=== PATIENT | male | born 1990 | race Caucasian/White ===

== ENCOUNTER 2016-06-01 00:30 | Emergency (ER) | payer OTHER ==
[~2016-06-01] VITALS: Ht 162.6 cm; Wt 83.9 kg
[2016-06-01 00:35] VITALS: Ht 162.6 cm; Wt 83.9 kg
--- NOTE | 2016-06-01 00:59 | EMERGENCY ROOM VISIT NOTE ---
History Report prepared by Lachoibmaricruz: Tonya Anthony Under the Supervision of: Dr. Alcides Henderson D.O. 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 The patient states that earlier tonight he was going to the bathroom to have a bowel movement and noticed he had a large amount of dark blood in his watery diarrhea stool. The patient states that he then tried to go back to sleep but then had another urgent bowl movement. He states that he has a history of Crohn's disease but has not had any issues for the last several years. He states that ileectomy of the small and large bowels in 2008. The patient states that after seeing the blood he felt dizziness and had cold sweats. He states he has no other sick contacts and ate normally today. He states he had some wine last night but that it usually does not cause these symptoms. The patient denies any vomiting, recent travel or recent antibiotic use. 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 A total of ten systems were reviewed and were otherwise negative. Past Medical & Surgical Medical Problems: (1) Acute Pancreatitis (2) Alcohol Abuse-Unspec (3) Asthma (4) Crohns disease (5) Iron Defic Anemia Nos Surgical Problems: (1) History of ileostomy Family History FH: diabetes mellitus FH: heart disease FH: hypertension Social History Smoking Status: Never Smoker Alcohol Use: occasionally Marital Status: single Housing Status: lives with roommate Occupation Status: employed Current/Historical Medications Scheduled Azathioprine (Imuran), 150 MG PO QAM Mesalamine (Lialda), 2.4 TAB PO QAM Multiple Vitamin (Multivitamin), 1 TAB PO QAM Scheduled PRN Loratadine (Claritin), 10 MG PO QAM PRN for QAM Allergies Coded Allergies: Morphine (Unverified Allergy, Unknown, "Opiate Agonist allergy", 06/01/16) Nalbuphine (Unverified Allergy, Unknown, DELIRIUM, 06/01/16) Physical Exam Vital Signs Date Time Temp Pulse Resp B/P Pulse Ox O2 Delivery O2 Flow Rate FiO2 06/01/16 02:06 74 18 121/67 99 Room Air 06/01/16 00:35 36.6 96 20 119/72 99 Room Air Physical Exam GENERAL: Awake, alert, well-appearing, in no distress HENT: Normocephalic, atraumatic. Oropharynx unremarkable. EYES: Normal conjunctiva. Sclera non-icteric. NECK: Supple. No nuchal rigidity. FROM. No JVD. RESPIRATORY: Clear to auscultation. CARDIAC: Regular rate, normal rhythm. Extremities warm and well perfused. Pulses equal. ABDOMEN: Soft, non-distended. No tenderness to palpation. No rebound or guarding. No masses. RECTAL: Deferred. MUSCULOSKELETAL: Chest examination reveals no tenderness. The back is symmetrical on inspection without obvious abnormality. There is no CVA tenderness to palpation. No joint edema. LOWER EXTREMITIES: Calves are equal size bilaterally and non-tender. No edema. No discoloration. NEURO: Normal sensorium. No sensory or motor deficits noted. SKIN: No rash or jaundice noted. Medical Decision & Procedures Laboratory Results 06/01/16 01:10 Red Blood Count 4.54, Mean Corpuscular Volume 87.2, Mean Corpuscular Hemoglobin 30.8, Mean Corpuscular Hemoglobin Concent 35.4, Mean Platelet Volume 11.2, Neutrophils (%) (Auto) 70.7, Lymphocytes (%) (Auto) 19.4, Monocytes (%) (Auto) 7.8, Eosinophils (%) (Auto) 1.7, Basophils (%) (Auto) 0.2, Neutrophils # (Auto) 4.27, Lymphocytes # (Auto) 1.17, Monocytes # (Auto) 0.47, Eosinophils # (Auto) 0.10, Basophils # (Auto) 0.01 06/01/16 01:10 Test 06/01/16 01:10 White Blood Count 6.03 K/uL (4.8-10.8) Red Blood Count 4.54 M/uL (4.7-6.1) Hemoglobin 14.0 g/dL (14.0-18.0) Hematocrit 39.6 % (42-52) Mean Corpuscular Volume 87.2 fL (80-100) Mean Corpuscular Hemoglobin 30.8 pg (25-34) Mean Corpuscular Hemoglobin Concent 35.4 g/dl (32-36) Platelet Count 164 K/uL (130-400) Mean Platelet Volume 11.2 fL (7.4-10.4) Neutrophils (%) (Auto) 70.7 % Lymphocytes (%) (Auto) 19.4 % Monocytes (%) (Auto) 7.8 % Eosinophils (%) (Auto) 1.7 % Basophils (%) (Auto) 0.2 % Neutrophils # (Auto) 4.27 K/uL (1.4-6.5) Lymphocytes # (Auto) 1.17 K/uL (1.2-3.4) Monocytes # (Auto) 0.47 K/uL (0.11-0.59) Eosinophils # (Auto) 0.10 K/uL (0-0.5) Basophils # (Auto) 0.01 K/uL (0-0.2) RDW Standard Deviation 41.8 fL (36.4-46.3) RDW Coefficient of Variation 13.2 % (11.5-14.5) Immature Granulocyte % (Auto) 0.2 % Immature Granulocyte # (Auto) 0.01 K/uL (0.00-0.02) Anion Gap 5.0 mmol/L (3-11) Est Creatinine Clear Calc Drug Dose 117.6 ml/min Estimated GFR () 130.9 Estimated GFR (Non- 112.9 BUN/Creatinine Ratio 17.9 (10-20) Calcium Level 8.5 mg/dl (8.5-10.1) Total Bilirubin 0.2 mg/dl (0.2-1) Aspartate Amino Transf (AST/SGOT) 15 U/L (15-37) Alanine Aminotransferase (ALT/SGPT) 28 U/L (12-78) Alkaline Phosphatase 55 U/L (45-117) Total Protein 6.4 gm/dl (6.4-8.2) Albumin 3.5 gm/dl (3.4-5.0) Globulin 2.9 gm/dl (2.5-4.0) Albumin/Globulin Ratio 1.2 (0.9-2) Chemistry Specimen Hemolysis Laboratory results reviewed by dc ED Course 0041: The patient was evaluated in room B3B. A complete history and physical exam was performed. 0225: I reevaluated the patient and he states he feels much better and is in no distress. I discussed results and discharge instructions: He verbalized understanding and agreement. The patient is ready for discharge. Medical Decision Differential diagnoses include but are not limited to; Crohn's disease, gastritis, gastroenteritis, lower GI bleed, and dehydration. Repeat examination 2:25 AM, patient presents in no distress he's able tolerate liquids without any difficulty. His abdomen is very soft on reexamination. I discussed workup with the patient at bedside and will place him on Bentyl for spasms. I do not suspect a significant Crohn's exacerbation or appendicitis at this time Impression Primary Impression: Crohns disease Additional Impression: Abdominal pain Scribe Attestation The scribe's documentation has been prepared under my direction and personally reviewed by me in its entirety. I confirm that the note above accurately reflects all work, treatment, procedures, and medical decision making performed by me. Departure Information Dispostion Home / Self-Care Prescriptions Dicyclomine Hcl (BENTYL) 10 Mg Cap 1 CAP PO TID for 30 Days, #90 CAP 3 Refills Prov: Alcides Henderson, DO 06/01/16 Referrals [facility] (PCP) Patient Instructions Abdominal Pain, My [facility] Additional Instructions Follow-up with primary care physician this week. Return for any increased pain or fever or anorexia or increased bloody stools. Problem Qualifiers Primary Impression: Crohns disease Gastrointestinal tract location: unspecified location Digestive disease complication type: without complication Qualified Codes: K50.90 - Crohn's disease, unspecified, without complications Additional Impression: Abdominal pain Abdominal location: generalized Qualified Codes: R10.84 - Generalized abdominal pain
[2016-06-01 01:45] LABS: BASO % 0.2 %; BASO ABS # 0.01 K/uL (0-0.2); COMPLETE YES; EOS % 1.7 %; HEMATOCRIT 39.6 % (42-52); IG% 0.2 %; LYMPH % 19.4 %; LYMPH ABS # 1.17 K/uL (1.2-3.4); MEAN CELL VOLUME 87.2 fL (80-100); MEAN CORPUSCULAR HEMOGLOBIN 30.8 pg (25-34); MEAN CORPUSCULAR HGB CONC 35.4 g/dl (32-36); MEAN PLATELET VOLUME 11.2 fL (7.4-10.4); MONO % 7.8 %; NEUT % 70.7 %; PLATELET COUNT 164 K/uL (130-400); RED BLOOD COUNT 4.54 M/uL (4.7-6.1); WHITE BLOOD COUNT 6.03 K/uL (4.8-10.8)
[2016-06-01 02:20] LABS: ALB/GLOB RATIO 1.2 (0.9-2); BUN/CREATININE RATIO 17.9 (10-20); CALCIUM 8.5 mg/dl (8.5-10.1); CREATININE 0.93 mg/dl (0.60-1.40)
[2016-06-01] MEDS ORDERED: DICY10CA55 PO (02:29)
[2016-06-01 02:35] VITALS: BP 121/67; PULSE 74; TEMP 36.6; O2SAT 99
[2016-06-01] MEDS ORDERED: MULTTAB58 PO (14:40)
[2016-06-01] MEDS ORDERED: MESA1.2T PO (14:40)
[2016-06-01] MEDS ORDERED: CLR10 PO (14:40)
[2016-06-01] MEDS ORDERED: AZAT50TA17 PO (20:50)
== END 2016-06-01 02:36 | disposition home or self-care (01) ==
LOC: C.EDB 00:31
DX: K50.90 Crohn's disease, unspecified, without complications (principal); R10.84 Generalized abdominal pain; K85.90 Acute pancreatitis without necrosis or infection, unspecified; F10.10 Alcohol abuse, uncomplicated; D50.9 Iron deficiency anemia, unspecified; Z83.3 Family history of diabetes mellitus; Z82.49 Family history of ischemic heart disease and other diseases of the circulatory system; Z79.899 Other long term (current) drug therapy

== ENCOUNTER 2016-06-01 14:22 | Inpatient (IN) | payer OTHER ==
[~2016-06-01] VITALS: Ht 162.6 cm; Wt 82.2 kg
[~2016-06-01 14:22] MED LIST: DICY10CA55 PO
[2016-06-01] MEDS ORDERED: MESA1.2T PO (14:40)
[2016-06-01] MEDS ORDERED: MULTTAB58 PO (14:40)
[2016-06-01] MEDS ORDERED: CLR10 PO (14:40)
--- NOTE | 2016-06-01 15:29 | EMERGENCY ROOM VISIT NOTE ---
History Report prepared by Thomas: Carroll Costello Under the Supervision of: Dr. Jose Villagran M.D. First contact with patient: 15:18 Chief Complaint: ABDOMINAL PAIN Stated Complaint: ABD. PAIN, CRAMPING BLOOD IN STOOL Nursing Triage Summary: Pt c/o "profuse blood in my stool" seen last night. States he has pictures of it, maroon in color. Prescribed Bentyl. [facility] Doctor didn't agree with prescription and sent him back to be admitted and have colonoscopy. Pt states Hgb was not low yesterday and it's higher today. History of Present Illness The patient is a 25 year old male who presents to the Emergency Room with complaints of rectal bleeding that occurred last night. The patient notes that the stool was maroon colored. The patient has been unable to have a BM since last night. The patient has also been experiencing nausea & abdominal cramping. Last night he passed out and missed the toilet, which prompted a visit to the ED. The patient has a history of Crohn's disease. His last colonoscopy was 2 years ago. He follows up with Dr. De Guzman [facility]. The patient denies shortness of breath, lightheadedness, burning with urination, vomiting, or leg swelling. He denies any recent trauma. He has never needed a blood transfusion. He is not on blood thinners and avoids NSAIDS. He denies any history of blood clots. Source of History: patient Onset: last night Position: other (rectal) Quality: other (bleeding) Timing: resolved Associated Symptoms: + abdominal pain, + nausea, No SOB, No urinary symptoms , No vomiting Review of Systems See HPI for pertinent positives & negatives. A total of 10 systems reviewed and were otherwise negative. Past Medical & Surgical Medical Problems: (1) Acute Pancreatitis (2) Alcohol Abuse-Unspec (3) Crohns disease (4) Iron Defic Anemia Nos (5) Rectal bleed Surgical Problems: (1) H/O arthroscopic knee surgery (2) History of appendectomy (3) History of bowel resection Family History FH: diabetes mellitus FH: heart disease FH: hypertension Social History Smoking Status: Never Smoker Alcohol Use: occasionally Marital Status: single Housing Status: lives with roommate Occupation Status: employed Current/Historical Medications Scheduled Azathioprine (Imuran), 150 MG PO QAM Mesalamine (Lialda), 2.4 TAB PO QAM Multiple Vitamin (Multivitamin), 1 TAB PO QAM Scheduled PRN Loratadine (Claritin), 10 MG PO QAM PRN for QAM Allergies Coded Allergies: Morphine (Verified Allergy, Unknown, "Opiate Agonist allergy", 06/01/16) Nalbuphine (Verified Allergy, Unknown, DELIRIUM, 06/01/16) Physical Exam Vital Signs Date Time Temp Pulse Resp B/P Pulse Ox O2 Delivery O2 Flow Rate FiO2 06/01/16 18:20 80 20 133/77 98 Room Air 06/01/16 17:00 87 16 125/77 98 Room Air 06/01/16 14:48 37.2 79 16 135/94 93 Room Air Physical Exam GENERAL: Patient is uncomfortable appearing in mild distress. HEENT: No acute trauma, normocephalic atraumatic, mucous membranes moist, no nasal congestion, no scleral icterus. NECK: No stridor, no adenopathy, no meningismus, trachea is midline. LUNGS: No dyspnea. Clear to auscultation and equal bilaterally. No wheeze, no rhonchi. HEART: Regular rate and rhythm. No murmurs, rubs, gallops appreciated. ABDOMEN: Hyperactive bowel sounds with mild tenderness throughout. BACK: No midline tenderness, no CVA tenderness EXTREMITIES: Normal motion all extremities, no cyanosis, no edema. NEUROLOGIC: Alert and oriented, no acute motor or sensory deficits, no focal weakness, cranial nerves grossly intact. SKIN: No rash, no jaundice, no diaphoresis. Medical Decision & Procedures ER Provider Diagnostic Interpretation: X ray results are stated below per my interpretation and the radiologist's interpretation. PA CHEST RADIOGRAPH AND UPRIGHT AND SUPINE AP RADIOGRAPHS OF THE ABDOMEN CLINICAL HISTORY: Diffuse abdominal pain. Blood in stool COMPARISON STUDY: Chest radiograph and abdominal series May 14, 2008. FINDINGS: Lung volumes are normal. Lungs are clear. There is no pneumothorax or pleural effusion. Cardiac size is normal. Mediastinal contours are normal. Bowel gas pattern is within normal limits. There is no evidence for a bowel obstruction. There is no free air. IMPRESSION: 1. No free air or evidence of bowel obstruction. 2. No acute cardiopulmonary findings. Electronically signed by: Shamar Araiza M.D. 06/01/2016 4:33 PM Dictated Date/Time: 06/01/2016 4:32 PM Laboratory Results 06/01/16 16:42 Red Blood Count 4.17, Mean Corpuscular Volume 86.3, Mean Corpuscular Hemoglobin 31.2, Mean Corpuscular Hemoglobin Concent 36.1, Mean Platelet Volume 10.8, Neutrophils (%) (Auto) 68.4, Lymphocytes (%) (Auto) 23.6, Monocytes (%) (Auto) 6.6, Eosinophils (%) (Auto) 1.0, Basophils (%) (Auto) 0.2, Neutrophils # (Auto) 3.41, Lymphocytes # (Auto) 1.18, Monocytes # (Auto) 0.33, Eosinophils # (Auto) 0.05, Basophils # (Auto) 0.01 06/01/16 16:00 Test 06/01/16 16:00 06/01/16 16:42 06/01/16 16:50 Prothrombin Time 11.3 SECONDS (9.0-12.0) Prothromb Time International Ratio 1.1 (0.9-1.1) Activated Partial Thromboplast Time 27.5 SECONDS (21.0-31.0) Partial Thromboplastin Ratio 1.1 Anion Gap 7.0 mmol/L (3-11) Est Creatinine Clear Calc Drug Dose 120.9 ml/min Estimated GFR () 136.1 Estimated GFR (Non- 117.5 BUN/Creatinine Ratio 13.8 (10-20) Calcium Level 8.8 mg/dl (8.5-10.1) Total Bilirubin 0.5 mg/dl (0.2-1) Direct Bilirubin mg/dl (0-0.2) Aspartate Amino Transf (AST/SGOT) U/L (15-37) Alanine Aminotransferase (ALT/SGPT) 28 U/L (12-78) Alkaline Phosphatase 40 U/L (45-117) C-Reactive Protein < 0.29 mg/dl (0-0.29) Total Protein 6.9 gm/dl (6.4-8.2) Albumin 3.8 gm/dl (3.4-5.0) Lipase 84 U/L (73-393) White Blood Count 4.99 K/uL (4.8-10.8) Red Blood Count 4.17 M/uL (4.7-6.1) Hemoglobin 13.0 g/dL (14.0-18.0) Hematocrit 36.0 % (42-52) Mean Corpuscular Volume 86.3 fL (80-100) Mean Corpuscular Hemoglobin 31.2 pg (25-34) Mean Corpuscular Hemoglobin Concent 36.1 g/dl (32-36) Platelet Count 164 K/uL (130-400) Mean Platelet Volume 10.8 fL (7.4-10.4) Neutrophils (%) (Auto) 68.4 % Lymphocytes (%) (Auto) 23.6 % Monocytes (%) (Auto) 6.6 % Eosinophils (%) (Auto) 1.0 % Basophils (%) (Auto) 0.2 % Neutrophils # (Auto) 3.41 K/uL (1.4-6.5) Lymphocytes # (Auto) 1.18 K/uL (1.2-3.4) Monocytes # (Auto) 0.33 K/uL (0.11-0.59) Eosinophils # (Auto) 0.05 K/uL (0-0.5) Basophils # (Auto) 0.01 K/uL (0-0.2) RDW Standard Deviation 41.8 fL (36.4-46.3) RDW Coefficient of Variation 13.3 % (11.5-14.5) Immature Granulocyte % (Auto) 0.2 % Immature Granulocyte # (Auto) 0.01 K/uL (0.00-0.02) Erythrocyte Sedimentation Rate 2 mm/hr (0-14) Urine Color YELLOW Urine Appearance CLEAR (CLEAR) Urine pH 5.0 (4.5-7.5) Urine Specific [place] 1.026 (1.000-1.030) Urine Protein NEG (NEG) Urine Glucose (UA) NEG (NEG) Urine Ketones NEG (NEG) Urine Occult Blood NEG (NEG) Urine Nitrite NEG (NEG) Urine Bilirubin NEG (NEG) Urine Urobilinogen NEG (NEG) Urine Leukocyte Esterase NEG (NEG) Urine WBC (Auto) 1-5 /hpf (0-5) Urine RBC (Auto) 0-4 /hpf (0-4) Urine Hyaline Casts (Auto) 1-5 /lpf (0-5) Urine Epithelial Cells (Auto) 5-10 /lpf (0-5) Urine Bacteria (Auto) NEG (NEG) Laboratory results as reviewed by me. Medications Administered Medications (Trade) Dose Ordered Sig/Jj Route Start Time Stop Time Status Last Admin Dose Admin Fentanyl Citrate 75 mcg 75 mcg NOW STAT IV 06/01/16 16:33 06/01/16 16:34 DC 06/01/16 16:57 75 MCG Sodium Chloride (Nss 1000ml) 1,000 ml @ 999 mls/hr Q1H1M STAT IV 06/01/16 16:33 06/01/16 17:33 DC 06/01/16 16:56 999 MLS/HR Hydromorphone HCl 1 mg 1 mg Q1HWA PRN IV 06/01/16 18:45 06/01/16 21:00 DC 06/01/16 20:58 1 MG Pantoprazole Sodium 40 mg/ Syringe 10 ml @ 5 mls/min NOW ONCE IV 06/01/16 19:15 06/01/16 19:16 DC 06/01/16 19:31 5 MLS/MIN Sodium Chloride (Nss 1000ml) 1,000 ml @ 100 mls/hr Q10H IV 06/01/16 19:42 06/02/16 05:41 06/01/16 20:57 100 MLS/HR Ondansetron HCl (Zofran Inj) 4 mg Q6H PRN IV 06/01/16 19:45 07/01/16 19:44 06/01/16 22:23 4 MG ED Course 1523: The patient was evaluated in room B2. A complete history and physical exam was performed. 1633: NSS 1000 ml @ 999 mls/hr, Fentanyl 75 mcg IV. 1830: The patient is having periodic abdominal cramping but has no significant pain at this time. 1845: Dilaudid 1 mg IV. 1850: Spoke with Laura Lomax PA-C, [facility] Hospitalist. The patient will be evaluated. 1914: Protonix 40 mg 10 ml @ 5 mls/min. Medical Decision Differential: Diverticulitis, AVM, Coagulopathy, Colitis, Malignancy, Upper GI bleed, Fissure, Hemorrhoids, amongst other pathologies entertained. 25 yr old male arrives with heavy rectal bleeding last night though no recent BM. Notes diffuse abdominal cramping. History of crohn's. CRP/ESR are normal. No WBC elevation. No peritonitis on abdominal exam. No acute findings on obstruction series. Feeling well with mild pain meds. This is third visit to physicians in just 12 hours thus I have asked hospitalist to evaluate further. Consults Time Called: 1829 Consulting Physician: Compa Segura. Returned Call: [phone]: Spoke with Laura Lomax PA-C, [facility] Hospitalist. The patient will be evaluated. Impression Primary Impression: GI bleed Scribe Attestation The scribe's documentation has been prepared under my direction and personally reviewed by me in its entirety. I confirm that the note above accurately reflects all work, treatment, procedures, and medical decision making performed by me. Departure Information Dispostion Being Evaluated By Hospitalist Referrals [facility] (PCP) Patient Instructions My [facility] Problem Qualifiers Primary Impression: GI bleed GI bleed type/associated pathology: unspecified gastrointestinal hemorrhage type Qualified Codes: K92.2 - Gastrointestinal hemorrhage, unspecified
[2016-06-01] MEDS ORDERED: SODIUM CHLORIDE 0.9% 1000ML 1,000 ML IV STA (16:33)
[2016-06-01] MEDS ORDERED: FENTANYL CITRATE INJ 50 MCG/1 ML 2 ML VIAL IV STA (16:33)
--- NOTE | 2016-06-01 16:35 | DIAGNOSTIC IMAGING REPORT ---
PA CHEST RADIOGRAPH AND UPRIGHT AND SUPINE AP RADIOGRAPHS OF THE ABDOMEN CLINICAL HISTORY: Diffuse abdominal pain. Blood in stool COMPARISON STUDY: Chest radiograph and abdominal series May 14, 2008. FINDINGS: Lung volumes are normal. Lungs are clear. There is no pneumothorax or pleural effusion. Cardiac size is normal. Mediastinal contours are normal. Bowel gas pattern is within normal limits. There is no evidence for a bowel obstruction. There is no free air. IMPRESSION: 1. No free air or evidence of bowel obstruction. 2. No acute cardiopulmonary findings. Electronically signed by: Shamar Araiza M.D. 06/01/2016 4:33 PM Dictated Date/Time: 06/01/2016 4:32 PM
[2016-06-01 16:50] LABS: INR 1.1 (0.9-1.1); PARTIAL THROMBOPLASTIN RATIO 1.1; PROTHROMBIN TIME (PATIENT) 11.3 SECONDS (9.0-12.0)
[2016-06-01 16:55] LABS: BASO % 0.2 %; BASO ABS # 0.01 K/uL (0-0.2); COMPLETE YES; IG% 0.2 %; LYMPH % 23.6 %; LYMPH ABS # 1.18 K/uL (1.2-3.4); MEAN CELL VOLUME 86.3 fL (80-100); MEAN CORPUSCULAR HEMOGLOBIN 31.2 pg (25-34); MEAN CORPUSCULAR HGB CONC 36.1 g/dl (32-36); MEAN PLATELET VOLUME 10.8 fL (7.4-10.4); MONO % 6.6 %; NEUT % 68.4 %; PLATELET COUNT 164 K/uL (130-400); RED BLOOD COUNT 4.17 M/uL (4.7-6.1); WHITE BLOOD COUNT 4.99 K/uL (4.8-10.8)
[2016-06-01 17:22] LABS: ALKALINE PHOSPHATASE 40 U/L (45-117); ALT/SGPT 28 U/L (12-78); BLOOD UREA NITROGEN 12 mg/dl (7-18); BUN/CREATININE RATIO 13.8 (10-20); C-REACTIVE PROTEIN < 0.29 mg/dl (0-0.29); CALCIUM 8.8 mg/dl (8.5-10.1); CARBON DIOXIDE 28 mmol/L (21-32); CHLORIDE 106 mmol/L (98-107); GLUCOSE 83 mg/dl (70-99); SODIUM 141 mmol/L (136-145)
[2016-06-01 17:47] LABS: URINE APPEARANCE CLEAR (CLEAR); URINE BILIRUBIN NEG (NEG); URINE COLOR YELLOW; URINE NITRITE NEG (NEG); URINE SPECIFIC GRAVITY 1.026 (1.000-1.030); UROBILINOGEN NEG (NEG); ZZUR CULT IF INDIC CLEAN CATCH NO
[2016-06-01 17:48] LABS: MANUAL MICROSCOPIC REQUIRED? NO; REVIEW REQ? NO
[2016-06-01] MEDS ORDERED: HYDROmorphone INJ 1 MG/ML SYR IV PRN ×2 (18:45→21:15)
[2016-06-01] MEDS ORDERED: PANTOprazole INJ 40 MG in SYRINGE 0 ML IV ONE (19:15)
[2016-06-01] MEDS ORDERED: SODIUM CHLORIDE 0.9% 1000ML 1,000 ML IV SCH (19:42)
[2016-06-01] MEDS ORDERED: NITROGLYCERIN 0.4 MG SL PER TAB CHARGE SL PRN (19:45)
[2016-06-01] MEDS ORDERED: ACETAMINOPHEN 325 MG TAB PO PRN (19:45)
[2016-06-01] MEDS ORDERED: LORATADINE 10 MG TAB PO PRN (20:00)
[2016-06-01] MEDS ORDERED: OPTIRAY 320 IV PRN (20:30)
--- NOTE | 2016-06-01 20:33 | History and Physical ---
History & Physical Date & Time of Service: Jun 01, 2016 at 19:51 Chief Complaint: Abd. Pain, Cramping Blood In Stool Primary Care Physician: Services,[facility] History of Present Illness Source: patient This is a 25 y/o male with PMHx of Crohns who presents to the ED c/o rectal bleed that began last night. Pt reports that last night around midnight he had 2 back to back episodes of bloody diarrhea. After the second episode he became lightheaded and diaphoretic and ended up passing out for a few seconds on his bathroom floor. Sxs are assoc with waxing and waning "twisting" RLQ abd pain that he rates at an 8/10 at its worst. Pt was seen in the ED last night for his sxs, HgB was stable and patient was discharged home with Bentyl. Pt has not had anymore episodes of bleeding since last night. Pt was seen by a physician at [facility] today. The Dr. claros recommended he return to the ED for further evaluation and possible admission. Pt is not on any blood thinners and rarely takes NSAIDs. Pt has a history of Crohns Dz. He had an ileo-colonic resection in 2008. He takes Lialda and Imuran and has not had a flare since his resection. Last colonoscopy and EGD from 2014 were normal. Pt follows with GI, Dr. De Guzman. Pt denies chest pain, palpitations, SOB, N/V, bladder issues, LE edema, calf pain. In the ED, vitals are stable. HgB 13. chest/abd xray negative for obstruction. Pt is hemodynamically stable and will be admitted for further evaluation and treatment. Past Medical/Surgical History Medical Problems: (1) Crohns disease Status: Chronic Surgical Problems: (1) H/O arthroscopic knee surgery Permanent Comment: R knee 2013 Status: Resolved (2) History of appendectomy Permanent Comment: 2008 Status: Resolved (3) History of bowel resection Permanent Comment: ilio-colonic resection 2* ileal stricture 2008 Status: Resolved Family History FH: diabetes mellitus FH: heart disease FH: hypertension Social History Smoking Status: Never Smoker Alcohol Use: occasionally Drug Use: none Occupational Status: employed Immunizations History of Influenza Vaccine: No History of Tetanus Vaccine?: Yes History of Pneumococcal: No History of Hepatitis B Vaccine: Yes Allergies Coded Allergies: Morphine (Verified Allergy, Unknown, "Opiate Agonist allergy", 06/01/16) Nalbuphine (Verified Allergy, Unknown, DELIRIUM, 06/01/16) Home Medications Scheduled Azathioprine (Imuran), 150 MG PO QAM Mesalamine (Lialda), 2.4 TAB PO QAM Multiple Vitamin (Multivitamin), 1 TAB PO QAM Scheduled PRN Loratadine (Claritin), 10 MG PO QAM PRN for QAM Review of Systems Constitutional: + chills, + fatigue, + sweats, + weakness, No fever Eyes: No worsening of vision ENT: No hearing loss Respiratory: No cough, No shortness of breath Cardiovascular: No chest pain, No claudication, No edema, No palpitations Abdomen: + GI bleeding, + diarrhea, + pain, No constipation, No nausea, No vomiting Musculoskeletal: No calf pain, No swelling Genitourinary - Male: No dysuria Neurologic: + problem reported (syncopal episode last night ), No weakness Psychiatric: No depression symptoms Endocrine: + fatigue Hematologic / Lymphatic: + abnormal bleeding/bruising (see above) Integumentary: No new/changing skin lesions Physical Exam Vital Signs Date Time Temp Pulse Resp B/P Pulse Ox O2 Delivery O2 Flow Rate FiO2 06/01/16 18:20 80 20 133/77 98 Room Air 06/01/16 17:00 87 16 125/77 98 Room Air 06/01/16 14:48 37.2 79 16 135/94 93 Room Air General Appearance: WD/WN, no apparent distress, + pertinent finding (Pt is laying in bed with mother at bedside ) Head: normocephalic, atraumatic Eyes: normal inspection ENT: hearing grossly normal Neck: supple Respiratory/Chest: chest non-tender, lungs clear, normal breath sounds, no respiratory distress Cardiovascular: regular rate, rhythm, no edema, no murmur Abdomen/GI: normal bowel sounds, soft, + tenderness (RLQ) Back: normal inspection Extremities/Musculoskelatal: normal inspection, no calf tenderness, no pedal edema Neurologic/Psych: alert, normal mood/affect, oriented x 3 Skin: normal color, warm/dry Diagnostics Laboratory Results Results Past 24 Hours Test 06/01/16 16:00 06/01/16 16:42 06/01/16 16:50 Range/Units Prothrombin Time 11.3 9.0-12.0 SECONDS Prothromb Time International Ratio 1.1 0.9-1.1 Activated Partial Thromboplast Time 27.5 21.0-31.0 SECONDS Partial Thromboplastin Ratio 1.1 Sodium Level 141 136-145 mmol/L Potassium Level 3.5-5.1 mmol/L Chloride Level 106 98-107 mmol/L Carbon Dioxide Level 28 21-32 mmol/L Anion Gap 7.0 3-11 mmol/L Blood Urea Nitrogen 12 7-18 mg/dl Creatinine 0.90 0.60-1.40 mg/dl Est Creatinine Clear Calc Drug Dose 120.9 ml/min Estimated GFR () 136.1 Estimated GFR (Non- 117.5 BUN/Creatinine Ratio 13.8 10-20 Random Glucose 83 70-99 mg/dl Calcium Level 8.8 8.5-10.1 mg/dl Total Bilirubin 0.5 0.2-1 mg/dl Direct Bilirubin 0-0.2 mg/dl Aspartate Amino Transf (AST/SGOT) 15-37 U/L Alanine Aminotransferase (ALT/SGPT) 28 12-78 U/L Alkaline Phosphatase 40 45-117 U/L C-Reactive Protein < 0.29 0-0.29 mg/dl Total Protein 6.9 6.4-8.2 gm/dl Albumin 3.8 3.4-5.0 gm/dl Lipase 84 73-393 U/L White Blood Count 4.99 4.8-10.8 K/uL Red Blood Count 4.17 4.7-6.1 M/uL Hemoglobin 13.0 14.0-18.0 g/dL Hematocrit 36.0 42-52 % Mean Corpuscular Volume 86.3 80-100 fL Mean Corpuscular Hemoglobin 31.2 25-34 pg Mean Corpuscular Hemoglobin Concent 36.1 32-36 g/dl Platelet Count 164 130-400 K/uL Mean Platelet Volume 10.8 7.4-10.4 fL Neutrophils (%) (Auto) 68.4 % Lymphocytes (%) (Auto) 23.6 % Monocytes (%) (Auto) 6.6 % Eosinophils (%) (Auto) 1.0 % Basophils (%) (Auto) 0.2 % Neutrophils # (Auto) 3.41 1.4-6.5 K/uL Lymphocytes # (Auto) 1.18 1.2-3.4 K/uL Monocytes # (Auto) 0.33 0.11-0.59 K/uL Eosinophils # (Auto) 0.05 0-0.5 K/uL Basophils # (Auto) 0.01 0-0.2 K/uL RDW Standard Deviation 41.8 36.4-46.3 fL RDW Coefficient of Variation 13.3 11.5-14.5 % Immature Granulocyte % (Auto) 0.2 % Immature Granulocyte # (Auto) 0.01 0.00-0.02 K/uL Erythrocyte Sedimentation Rate 2 0-14 mm/hr Urine Color YELLOW Urine Appearance CLEAR CLEAR Urine pH 5.0 4.5-7.5 Urine Specific [place] 1.026 1.000-1.030 Urine Protein NEG NEG Urine Glucose (UA) NEG NEG Urine Ketones NEG NEG Urine Occult Blood NEG NEG Urine Nitrite NEG NEG Urine Bilirubin NEG NEG Urine Urobilinogen NEG NEG Urine Leukocyte Esterase NEG NEG Urine WBC (Auto) 1-5 0-5 /hpf Urine RBC (Auto) 0-4 0-4 /hpf Urine Hyaline Casts (Auto) 1-5 0-5 /lpf Urine Epithelial Cells (Auto) 5-10 0-5 /lpf Urine Bacteria (Auto) NEG NEG Diagnostic Radiology CT ABD/PELVIS IMPRESSION: 1. No free air or evidence of bowel obstruction. 2. No acute cardiopulmonary findings. Impression Assessment and Plan RECTAL BLEED; LIKELY SECONDARY TO CROHN'S FLARE pt presented with rectal bleed assoc with abd pain; h/o Crohns on Imuran and Lialda- s/p ileocolonic resection in 2008 -admit to telemetry -Hgb currently 13; will continue to monitor with daily CBC -last colonoscopy from 2014 was normal -obtain CT abd/pelvis to evaluate for inflammation -check stool studies -start IVF, Protonix and steroids -consult GI, Dr. Lanier-appreciate input -pt appears to be hemodynamically stable -continue to monitor closely ABDOMINAL PAIN -likely secondary to above -abdominal xray negative for obstruction -obtain abdominal/pelvis CT for further evaluation DVT PROPHYLAXIS -SCDs only in setting of rectal bleed CODE STATUS -FULL CODE DISPO Pt seen in collaboration with Dr Salamanca. Please see her addendum for further details. Thanks! -Of note: patient will be followed by Dr. Navarro starting tomorrow AM. I have seen, examined and discussed this patient with Laura Lomax and I agree with the above note. Patient with a h/o Crohn's presents with abdominal pain and rectal bleeding. Vitals stable. PE: General- awake; alert; NAD Eyes- EOMI; no scleral icterus Neck- no stridor; trachea midline Lungs- CTA bilaterally; no wheezes/crackles Heart- RRR; no m/r/g Abdomen- soft; RLQ tenderness to palpation; no guarding; nBS; ND Back- no gross abnormalities Extremities- no c/c/e; no deformity Neuro- no focal deficits Skin- no appreciable rash or bruises Labs and imaging reviewed. Possible Crohn's flare: Patient with episode of rectal bleeding and abdominal pain. GI consulted. Will start methylprednisolone. Hold home Crohn's medications for now. CT a/p pending. Stool studies ordered. Pain medication PRN. VTE Prophylaxis VTE Risk Assessment Done? Y/N: Yes Risk Level: Moderate
[2016-06-01 20:50] VITALS: BP 135/77; PULSE 96; TEMP 37; O2SAT 98; Ht 162.6 cm; Wt 82.2 kg
[2016-06-01] MEDS ORDERED: AZAT50TA17 PO (20:50)
[2016-06-01] MEDS: PANTOprazole INJ 40 MG in SYRINGE 0 ML IV SCH (21:29)
[2016-06-01] MEDS: METHYLPREDNISOLONE IV 30 MG in SYRINGE 0 ML IV SCH (21:29)
[2016-06-01] MEDS: ONDANSETRON INJ 2 MG/ML 2 ML VIAL IV PRN (22:23)
--- NOTE | 2016-06-01 22:52 | DIAGNOSTIC IMAGING REPORT ---
CT OF THE ABDOMEN AND PELVIS WITH CONTRAST CLINICAL HISTORY: Rectal bleed. History of Crohn's disease. Evaluate for inflammation. COMPARISON STUDY: CT of the abdomen and pelvis May 07, 2008 and abdominal series and chest radiograph performed earlier today. TECHNIQUE: Following IV administration of 92 mL of Optiray-320, axial images of the abdomen and pelvis were obtained from the lung bases to the proximal femurs. Images were reviewed in the axial, sagittal, and coronal planes. IV contrast was administered without complication. Oral contrast was administered. CT DOSE: 413.38 mGy.cm FINDINGS: Lung bases are clear. The liver, spleen, adrenal glands, kidneys and pancreas are normal. There is no biliary or pancreatic ductal dilatation. No peripancreatic or pericholecystic infiltration is present. No hydronephrosis is present. The caliber and wall thickness of small and large bowel are normal. There are findings suggestive of an ileocecectomy. No fluid collection is identified to suggest an abscess. No fistula is identified within the abdomen or pelvis by CT. There are no enlarged lymph nodes. Skeletal structures are unremarkable. IMPRESSION: 1. No acute process within the abdomen or pelvis. 2. Findings suggestive of an ileocecectomy. No bowel obstruction. No bowel wall thickening. Electronically signed by: Shamar Araiza M.D. 06/01/2016 10:51 PM Dictated Date/Time: 06/01/2016 10:43 PM
[2016-06-01] MEDS ORDERED: LORAZEPAM 0.5 MG TAB PO ONE (23:30)
[2016-06-02] VITALS (7 sets, daily range): BP systolic 111–135; BP diastolic 66–82; PULSE 82–111; TEMP 36.3–36.9; O2SAT 96–100
[2016-06-02] MEDS: METHYLPREDNISOLONE IV 30 MG in SYRINGE 0 ML IV SCH (05:31)
[2016-06-02 05:47] LABS: HEMATOCRIT 36.1 % (42-52); MEAN CELL VOLUME 86.6 fL (80-100); MEAN CORPUSCULAR HEMOGLOBIN 30.7 pg (25-34); MEAN CORPUSCULAR HGB CONC 35.5 g/dl (32-36); PLATELET COUNT 162 K/uL (130-400); RED BLOOD COUNT 4.17 M/uL (4.7-6.1); WHITE BLOOD COUNT 6.35 K/uL (4.8-10.8)
[2016-06-02 06:14] LABS: BUN/CREATININE RATIO 11.2 (10-20); CREATININE 0.88 mg/dl (0.60-1.40); POTASSIUM 4.5 mmol/L (3.5-5.1)
[2016-06-02] MEDS: MULTIVITAMIN TAB PO SCH (08:05)
[2016-06-02] MEDS: PANTOprazole INJ 40 MG in SYRINGE 0 ML IV SCH ×2 (08:06→20:27)
[2016-06-02] MEDS ORDERED: METHYLPREDNISOLONE IV 30 MG in SYRINGE 0 ML IV SCH (09:00)
[2016-06-02] MEDS ORDERED: AZATHIOPRINE 50 MG TAB PO SCH (09:00)
--- NOTE | 2016-06-02 10:27 | Gastrointestinal Consultation ---
Gastrointestinal Consultation Date of Consultation: Jun 02, 2016 Consulting Physician: Kaitlin Reason for Consultation: GIB History of Present Illness Patient is a 25 year old male with past medical history significant for seasonal allergies and crohn's disease s/p ileocolonic resection in 2008 ( maintained on lialda and imuran w/o on evidence of disease since resection) who presents to the ED for the evaluation of lower BRBPR. He was seen in the ED, S and then the ED again before he was admitted last night. 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 There was no stool with this. He immediately developed right lower quadrant pain at this time that is constant and twisting. The pain waxes and wanes in intensity with unknown trigger. He believes it is related to intestinal peristalsis. A few minutes later he had another episode of severe BRBPR - denies any stool at this time again. There were associated cold sweats and perceived fever with lightheadedness - followed by an episode of syncope during this episode. Today he denies any further episode of BRBPR or any stooling. There is still RLQ pain unchanged in severity or frequency. No nausea or vomiting. No fever, chills, chest pain, SOB, epigastric pain or symptoms of reflux. + ETOH use last night. No recent travel. No well water. + ABX use for pneumonia within the last month. ABD XR 06/01/16: Lung volumes are normal. Lungs are clear. There is no pneumothorax or pleural effusion. Cardiac size is normal. Mediastinal contours are normal. Bowel gas pattern is within normal limits. There is no evidence for a bowel obstruction. There is no free air. CT ABD 06/01/16: Lung bases are clear. The liver, spleen, adrenal glands, kidneys and pancreas are normal. There is no biliary or pancreatic ductal dilatation. No peripancreatic or pericholecystic infiltration is present. No hydronephrosis is present. The caliber and wall thickness of small and large bowel are normal. There are findings suggestive of an ileocecectomy. No fluid collection is identified to suggest an abscess. No fistula is identified within the abdomen or pelvis by CT. There are no enlarged lymph nodes. Skeletal structures are unremarkable. EGD 01/08/15: Z-line irregular. Biopsied. Gastritis. Biopsied.Normal examined duodenum Colonoscopy 01/08/15: normal study w/ patent end to side ileocolonic anastomosis Past Medical/Surgical History Medical Problems: (1) Abdominal pain Status: Acute (2) GI bleed Status: Acute Family History FH: diabetes mellitus FH: heart disease FH: hypertension Social History Smoking Status: Never Smoker Alcohol Use: occasionally Drug Use: none Housing Status: lives with roommate Occupation Status: employed Allergies Coded Allergies: Morphine (Verified Allergy, Unknown, "Opiate Agonist allergy", 06/01/16) Nalbuphine (Verified Allergy, Unknown, DELIRIUM, 06/01/16) Current Medications Home Meds and Scripts Medications Dose Route/Sig Max Daily Dose Days Date Category Multivitamin (Multiple Vitamin) 1 Tab Tab 1 Tab PO QAM 12/30/14 Reported Claritin (Loratadine) 10 Mg Tab 10 Mg PO QAM PRN 12/30/14 Reported Lialda (Mesalamine) 1.2 Gm Tab 2.4 Tab PO QAM 12/30/14 Reported Imuran (Azathioprine) 50 Mg Tab 150 Mg PO QAM 01/29/08 Reported Review of Systems Constitutional: No chills, No fever Respiratory: No cough, No shortness of breath Cardiac: No chest pain, No edema Abdomen: + GI bleeding, + pain (RLQ, contant&sharp, non-radiating, wax and wanes in severity. no abd cramping), No constipation, No diarrhea, No nausea, No vomiting Skin: No itch, No rash Physical Exam Date Time Temp Pulse Resp B/P Pulse Ox O2 Delivery O2 Flow Rate FiO2 06/02/16 07:38 36.3 97 18 111/69 99 Room Air 06/02/16 04:00 Room Air 06/02/16 04:00 36.6 82 18 118/72 96 Room Air 06/02/16 00:02 36.7 86 20 111/66 97 Room Air 06/01/16 23:18 Room Air 06/01/16 20:50 37.0 96 20 135/77 98 Room Air 06/01/16 20:50 37.0 96 20 135/77 98 Room Air 06/01/16 20:19 80 20 111/89 97 Room Air 06/01/16 18:20 80 20 133/77 98 Room Air 06/01/16 17:00 87 16 125/77 98 Room Air 06/01/16 14:48 37.2 79 16 135/94 93 Room Air General Appearance: no apparent distress Eyes: PERRL ENT: hearing grossly normal Neck: supple, trachea midline Respiratory/Chest: lungs clear, normal breath sounds, no respiratory distress, no accessory muscle use Cardiovascular: regular rate, rhythm, no edema, no gallop, no JVD, no murmur Abdomen: normal bowel sounds, soft, no organomegaly, no pulsatile mass, + tenderness (RLQ pain w/palpation - increases in severity w/ touch, no radiation in pain) Extremities: no pedal edema Neurologic/Psych: alert, normal mood/affect, oriented x 3 Skin: normal color, no jaundice, warm/dry, no rash Laboratory Results Last 24 Hours Test 06/01/16 16:00 06/01/16 16:42 06/01/16 16:50 06/02/16 05:03 Prothrombin Time 11.3 SECONDS Prothromb Time International Ratio 1.1 Activated Partial Thromboplast Time 27.5 SECONDS Partial Thromboplastin Ratio 1.1 Sodium Level 141 mmol/L 141 mmol/L Potassium Level mmol/L 4.5 mmol/L Chloride Level 106 mmol/L 105 mmol/L Carbon Dioxide Level 28 mmol/L 33 mmol/L Anion Gap 7.0 mmol/L 3.0 mmol/L Blood Urea Nitrogen 12 mg/dl 10 mg/dl Creatinine 0.90 mg/dl 0.88 mg/dl Est Creatinine Clear Calc Drug Dose 120.9 ml/min 124.0 ml/min Estimated GFR () 136.1 137.4 Estimated GFR (Non- 117.5 118.6 BUN/Creatinine Ratio 13.8 11.2 Random Glucose 83 mg/dl 116 mg/dl Calcium Level 8.8 mg/dl 9.0 mg/dl Total Bilirubin 0.5 mg/dl Direct Bilirubin mg/dl Aspartate Amino Transf (AST/SGOT) U/L Alanine Aminotransferase (ALT/SGPT) 28 U/L Alkaline Phosphatase 40 U/L C-Reactive Protein < 0.29 mg/dl Total Protein 6.9 gm/dl Albumin 3.8 gm/dl Lipase 84 U/L White Blood Count 4.99 K/uL 6.35 K/uL Red Blood Count 4.17 M/uL 4.17 M/uL Hemoglobin 13.0 g/dL 12.8 g/dL Hematocrit 36.0 % 36.1 % Mean Corpuscular Volume 86.3 fL 86.6 fL Mean Corpuscular Hemoglobin 31.2 pg 30.7 pg Mean Corpuscular Hemoglobin Concent 36.1 g/dl 35.5 g/dl Platelet Count 164 K/uL 162 K/uL Mean Platelet Volume 10.8 fL 11.0 fL Neutrophils (%) (Auto) 68.4 % Lymphocytes (%) (Auto) 23.6 % Monocytes (%) (Auto) 6.6 % Eosinophils (%) (Auto) 1.0 % Basophils (%) (Auto) 0.2 % Neutrophils # (Auto) 3.41 K/uL Lymphocytes # (Auto) 1.18 K/uL Monocytes # (Auto) 0.33 K/uL Eosinophils # (Auto) 0.05 K/uL Basophils # (Auto) 0.01 K/uL RDW Standard Deviation 41.8 fL 42.2 fL RDW Coefficient of Variation 13.3 % 13.3 % Immature Granulocyte % (Auto) 0.2 % Immature Granulocyte # (Auto) 0.01 K/uL Erythrocyte Sedimentation Rate 2 mm/hr Urine Color YELLOW Urine Appearance CLEAR Urine pH 5.0 Urine Specific [place] 1.026 Urine Protein NEG Urine Glucose (UA) NEG Urine Ketones NEG Urine Occult Blood NEG Urine Nitrite NEG Urine Bilirubin NEG Urine Urobilinogen NEG Urine Leukocyte Esterase NEG Urine WBC (Auto) 1-5 /hpf Urine RBC (Auto) 0-4 /hpf Urine Hyaline Casts (Auto) 1-5 /lpf Urine Epithelial Cells (Auto) 5-10 /lpf Urine Bacteria (Auto) NEG Impression Patient is a 25 year old male with two episodes or BRBPR (without any BM) with chills, perceived fever & an episode of syncope. Differentials include AVM, diverticulitis, Crohn's flare, coagulopathy, infectious colitis, rapid transit upper GI bleed, fissure, hemorrhoidal bleed, malignancy etc. Plan Clear liquids until 06/02/16 2355 119 gm miralax & 20mg Dulcolax 1700 119 gm miralax at 2100 NPO after midnight Colonoscopy 06/03/16 Stools - culture, c.diff IVF Trend H&H HGB 06/01/16: 14 HGB 06/02/16: 12.8 Monitor stools Transfuse as needed Attg addendum: I interviewed and examined pt, reviewed chart and labs. Pt with h/o Crohn's disease, now with hematochezia x 1 last night associated with vasovagal syncope, now without bm and with RUQ pain. CT unremarkable, labs unremarkable. He likely has outlet bleeding and constipation. Will plan csocpy tomorrow.
[2016-06-02] MEDS: ONDANSETRON INJ 2 MG/ML 2 ML VIAL IV PRN ×2 (11:16→20:27)
[2016-06-02] MEDS ORDERED: PROMETHAZINE HCL INJ 12.5 MG in SODIUM CHLORIDE 0.9% 50ML 50 ML IV ONE (14:00)
[2016-06-02] MEDS ORDERED: POLYETHYLENE (MIRALAX) 17 GM PACK PO ONE ×3 (14:00→21:00)
[2016-06-02] MEDS ORDERED: BISACODYL 5 MG TABEC PO ONE (17:00)
--- NOTE | 2016-06-02 17:24 | Progress Note ---
Subjective Date of Service: Jun 02, 2016. Subjective Pt evaluation today including: conversation w/ patient, physical exam, lab review, review of studies, review of inpatient medication list Saw/examined the patient in room 230 He is laying comfortably earlier had some nausea, improved with medications currently drinking Miralax - prep for colonoscopy No rectal bleeding since presenting to the hospital Problem List Medical Problems: (1) Abdominal pain Status: Acute (2) GI bleed Status: Acute Review of Systems Constitutional: No chills, No fever Respiratory: No shortness of breath Cardiac: No chest pain, No palpitations Abdomen: + GI bleeding (blood clots), + see HPI, No constipation, No diarrhea, No nausea, No pain, No vomiting Medications Current Inpatient Medications Medications (Trade) Dose Ordered Sig/Jj Route Start Time Stop Time Status Last Admin Dose Admin Acetaminophen (Tylenol Tab) 650 mg Q4H PRN PO 06/01/16 19:45 07/01/16 19:44 Ondansetron HCl (Zofran Inj) 4 mg Q6H PRN IV 06/01/16 19:45 07/01/16 19:44 06/02/16 11:16 4 MG Nitroglycerin 0.4 mg 0.4 mg UD PRN SL 06/01/16 19:45 07/01/16 19:44 Pantoprazole Sodium/Syringe (Protonix Inj/ Syringe) 10 ml @ 5 mls/min DAILY@09,21 IV 06/01/16 21:00 07/01/16 20:59 06/02/16 08:06 5 MLS/MIN Azathioprine (Imuran Tab) 150 mg QAM PO 06/02/16 09:00 07/02/16 08:59 Future Hold 06/02/16 08:06 150 MG Loratadine (Claritin Tab) 10 mg QAM PRN PO 06/01/16 20:00 07/01/16 19:59 Multivitamins (Multivitamin Tab) 1 tab QAM PO 06/02/16 09:00 07/02/16 08:59 06/02/16 08:05 1 TAB Ioversol (Optiray 320) 111 ml UD PRN IV 06/01/16 20:30 06/05/16 20:29 Mesalamine (Lialda) 2.4 gm QAM PO 06/03/16 09:00 07/03/16 08:59 Objective Vital Signs Date Time Temp Pulse Resp B/P Pulse Ox O2 Delivery O2 Flow Rate FiO2 06/02/16 15:12 36.4 111 18 131/79 100 Room Air 06/02/16 12:00 Room Air 06/02/16 10:57 36.8 106 18 128/79 97 Room Air 06/02/16 08:00 Room Air 06/02/16 07:38 36.3 97 18 111/69 99 Room Air 06/02/16 04:00 Room Air 06/02/16 04:00 36.6 82 18 118/72 96 Room Air 06/02/16 00:02 36.7 86 20 111/66 97 Room Air 06/01/16 23:18 Room Air 06/01/16 20:50 37.0 96 20 135/77 98 Room Air 06/01/16 20:50 37.0 96 20 135/77 98 Room Air 06/01/16 20:19 80 20 111/89 97 Room Air 06/01/16 18:20 80 20 133/77 98 Room Air Physical Exam General Appearance: no apparent distress Respiratory/Chest: lungs clear, normal breath sounds, no respiratory distress, no accessory muscle use Cardiovascular: no edema, no murmur, + tachycardia Abdomen: normal bowel sounds, soft, + tenderness (RLQ tenderness) Laboratory Results Last 24 Hours Test 06/02/16 05:03 White Blood Count 6.35 K/uL Red Blood Count 4.17 M/uL Hemoglobin 12.8 g/dL Hematocrit 36.1 % Mean Corpuscular Volume 86.6 fL Mean Corpuscular Hemoglobin 30.7 pg Mean Corpuscular Hemoglobin Concent 35.5 g/dl RDW Standard Deviation 42.2 fL RDW Coefficient of Variation 13.3 % Platelet Count 162 K/uL Mean Platelet Volume 11.0 fL Sodium Level 141 mmol/L Potassium Level 4.5 mmol/L Chloride Level 105 mmol/L Carbon Dioxide Level 33 mmol/L Anion Gap 3.0 mmol/L Blood Urea Nitrogen 10 mg/dl Creatinine 0.88 mg/dl Est Creatinine Clear Calc Drug Dose 124.0 ml/min Estimated GFR () 137.4 Estimated GFR (Non- 118.6 BUN/Creatinine Ratio 11.2 Random Glucose 116 mg/dl Calcium Level 9.0 mg/dl Assessment and Plan This is a 25 year old male with PMH of Crohns presented with acute rectal bleeding LGIB unsure of the cause possible Crohn's flare? appreciate GI input for now, the plan is for IVFs, monitor H/H clear liquid diet, miralax and bowel prep colonoscopy planned for 06/03 steroids have been stopped continue Protonix DVT ppx SCDs FULL CODE
[2016-06-02] MEDS ORDERED: LORAZEPAM 0.5 MG TAB PO PRN (21:00)
[2016-06-02 21:26] LABS: HEMATOCRIT 35.4 % (42-52)
[2016-06-03] VITALS (9 sets, daily range): BP systolic 110–118; BP diastolic 63–76; PULSE 79–92; TEMP 36.3–37.5; O2SAT 88–98
[2016-06-03 06:35] LABS: HEMATOCRIT 32.7 % (42-52); MEAN CELL VOLUME 89.1 fL (80-100); MEAN CORPUSCULAR HEMOGLOBIN 31.6 pg (25-34); MEAN CORPUSCULAR HGB CONC 35.5 g/dl (32-36); PLATELET COUNT 152 K/uL (130-400); RED BLOOD COUNT 3.67 M/uL (4.7-6.1); WHITE BLOOD COUNT 5.25 K/uL (4.8-10.8)
[2016-06-03 07:05] LABS: BUN/CREATININE RATIO 11.8 (10-20); CALCIUM 8.7 mg/dl (8.5-10.1); POTASSIUM 3.6 mmol/L (3.5-5.1)
[2016-06-03] MEDS: PANTOprazole INJ 40 MG in SYRINGE 0 ML IV SCH (08:38)
[2016-06-03] MEDS ORDERED: MESALAMINE 1.2 GM TAB PO SCH (09:00)
[2016-06-03] MEDS ORDERED: HYDROmorphone INJ 0.5 MG/0.5 ML SYR IV PRN (09:00)
[2016-06-03] MEDS ORDERED: SODIUM CHLORIDE 0.9% 1000ML 1,000 ML IV SCH (11:30)
[2016-06-03] MEDS ORDERED: FENTANYL CITRATE INJ 50 MCG/1 ML 2 ML VIAL ONE (13:02)
[2016-06-03] MEDS ORDERED: PROPOFOL IV EMULSION 10 MG/ML 20 ML VIAL IV ONE (13:02)
[2016-06-03] MEDS ORDERED: LIDOCAINE HCL 2% 2 ML VIAL (20MG/ML) ONE (13:02)
--- NOTE | 2016-06-03 14:36 | GI REPORT ---
Procedure Date: 06/03/2016 1:12 PM Procedure: Colonoscopy Indications: Rectal bleeding Medicines: See the Anesthesia note for documentation of the administered medications Complications: No immediate complications. Estimated Blood Loss: Estimated blood loss: none. Procedure: Pre-Anesthesia Assessment: - ASA Grade Assessment: II - A patient with mild systemic disease. After I obtained informed consent, the scope was passed under direct vision. Throughout the procedure, the patient's blood pressure, pulse, and oxygen saturations were monitored continuously. The On-site loaner was introduced through the anus and advanced to the ileocolonic anastomosis. The colonoscopy was performed without difficulty. The patient tolerated the procedure well. The quality of the bowel preparation was fair. Findings: The perianal and digital rectal examinations were normal. There was an end to side ileocolonic anastamosis. There was a shallow small erosion on the ileal side of the anastamosis. There was a mucosal bridge at the anastamosis. The ileum was intubated, and was normal. The colon was normal. Small hemorrhoids noted on retroflexion. There was a small scar in the rectum, possibly from prior fistula. There was brown stool throughout the colon. Impression: Perianal bleeding, resolved. Recommendation: - Discharge patient to floor. He is ok for d/c home today. La Madrigal M.D. La Madrigal MD 06/03/2016 2:36:40 PM This report has been signed electronically. Note Initiated On: 06/03/2016 1:12 PM I attest to the content of the Intraoperative Record and orders documented therein, exceptions below
--- NOTE | 2016-06-03 15:12 | Anesthesiology Progress Note ---
Anesthesia Post Op Note Date & Time Jun 03, 2016 at 15:12 Vital Signs Pain Intensity: 6 Vital Signs Past 12 Hours Date Time Temp Pulse Resp B/P Pulse Ox O2 Delivery O2 Flow Rate FiO2 06/03/16 14:51 85 18 110/63 88 Room Air 06/03/16 14:17 18 119/69 98 Room Air 06/03/16 13:55 83 18 122/64 98 Room Air 06/03/16 13:39 85 18 115/74 97 Room Air 06/03/16 12:00 37.5 87 18 133/69 96 Room Air 06/03/16 10:52 36.8 90 18 118/72 96 Room Air 06/03/16 10:00 36.5 86 18 112/73 97 Room Air 06/03/16 08:00 Room Air 06/03/16 07:25 36.5 86 18 112/73 97 Room Air 06/03/16 04:00 Room Air 06/03/16 03:15 36.3 90 16 111/67 98 Room Air Notes Mental Status: alert / awake / arousable, participated in evaluation Pt Amnestic to Procedure: Yes Nausea / Vomiting: adequately controlled Pain: adequately controlled Airway Patency, RR, SpO2: stable & adequate BP & HR: stable & adequate Hydration State: stable & adequate Anesthetic Complications: no major complications apparent
--- NOTE | 2016-06-03 15:21 | Progress Note ---
Subjective Date of Service: Jun 03, 2016. Subjective Pt evaluation today including: conversation w/ patient, physical exam, lab review, review of studies, review of inpatient medication list Saw/examined the patient in room 230 He is doing well, no significant abdominal pain colonoscopy performed and negative Problem List Medical Problems: (1) Abdominal pain Status: Acute (2) GI bleed Status: Acute Review of Systems Constitutional: No chills, No fever, No weakness Respiratory: No shortness of breath Cardiac: No chest pain Abdomen: + pain (mild), No GI bleeding, No constipation, No diarrhea, No nausea , No vomiting Medications Current Inpatient Medications Medications (Trade) Dose Ordered Sig/Jj Route Start Time Stop Time Status Last Admin Dose Admin Acetaminophen (Tylenol Tab) 650 mg Q4H PRN PO 06/01/16 19:45 07/01/16 19:44 06/02/16 20:26 650 MG Ondansetron HCl (Zofran Inj) 4 mg Q6H PRN IV 06/01/16 19:45 07/01/16 19:44 06/02/16 20:27 4 MG Nitroglycerin 0.4 mg 0.4 mg UD PRN SL 06/01/16 19:45 07/01/16 19:44 Pantoprazole Sodium/Syringe (Protonix Inj/ Syringe) 10 ml @ 5 mls/min DAILY@09,21 IV 06/01/16 21:00 07/01/16 20:59 06/03/16 08:38 5 MLS/MIN Azathioprine (Imuran Tab) 150 mg QAM PO 06/02/16 09:00 07/02/16 08:59 Future Hold 06/02/16 08:06 150 MG Loratadine (Claritin Tab) 10 mg QAM PRN PO 06/01/16 20:00 07/01/16 19:59 Multivitamins (Multivitamin Tab) 1 tab QAM PO 06/02/16 09:00 07/02/16 08:59 06/02/16 08:05 1 TAB Ioversol (Optiray 320) 111 ml UD PRN IV 06/01/16 20:30 06/05/16 20:29 Mesalamine (Lialda) 2.4 gm QAM PO 06/03/16 09:00 07/03/16 08:59 Lorazepam (Ativan Tab) 0.5 mg HS PRN PO 06/02/16 21:00 07/02/16 20:59 06/02/16 22:21 0.5 MG Hydromorphone HCl 0.5 mg 0.5 mg Q2R PRN IV 06/03/16 09:00 06/17/16 08:59 06/03/16 09:15 0.5 MG Sodium Chloride (Nss 1000ml) 1,000 ml @ 80 mls/hr [id number] IV 06/03/16 11:30 07/03/16 11:29 Objective Vital Signs Date Time Temp Pulse Resp B/P Pulse Ox O2 Delivery O2 Flow Rate FiO2 06/03/16 14:51 85 18 110/63 88 Room Air 06/03/16 14:17 18 119/69 98 Room Air 06/03/16 13:55 83 18 122/64 98 Room Air 06/03/16 13:39 85 18 115/74 97 Room Air 06/03/16 12:00 37.5 87 18 133/69 96 Room Air 06/03/16 10:52 36.8 90 18 118/72 96 Room Air 06/03/16 10:00 36.5 86 18 112/73 97 Room Air 06/03/16 08:00 Room Air 06/03/16 07:25 36.5 86 18 112/73 97 Room Air 06/03/16 04:00 Room Air 06/03/16 03:15 36.3 90 16 111/67 98 Room Air 06/03/16 00:00 Room Air 06/02/16 22:50 36.9 88 16 114/66 96 Room Air 06/02/16 20:00 Room Air 06/02/16 19:27 36.9 102 20 135/82 99 Room Air 06/02/16 16:00 Room Air 06/02/16 15:12 36.4 111 18 131/79 100 Room Air Physical Exam General Appearance: no apparent distress Respiratory/Chest: chest non-tender, lungs clear, normal breath sounds, no respiratory distress, no accessory muscle use Cardiovascular: regular rate, rhythm, no edema, no murmur Abdomen: normal bowel sounds, soft, + tenderness (mild tenderness) Extremities: normal inspection, no pedal edema Neurologic/Psychiatric: no motor/sensory deficits, alert, normal mood/affect Skin: normal color Laboratory Results Last 24 Hours Test 06/02/16 21:20 06/03/16 05:37 Hemoglobin 12.6 g/dL 11.6 g/dL Hematocrit 35.4 % 32.7 % White Blood Count 5.25 K/uL Red Blood Count 3.67 M/uL Mean Corpuscular Volume 89.1 fL Mean Corpuscular Hemoglobin 31.6 pg Mean Corpuscular Hemoglobin Concent 35.5 g/dl RDW Standard Deviation 45.4 fL RDW Coefficient of Variation 13.8 % Platelet Count 152 K/uL Mean Platelet Volume 11.0 fL Sodium Level 142 mmol/L Potassium Level 3.6 mmol/L Chloride Level 104 mmol/L Carbon Dioxide Level 34 mmol/L Anion Gap 4.0 mmol/L Blood Urea Nitrogen 12 mg/dl Creatinine 1.00 mg/dl Est Creatinine Clear Calc Drug Dose 108.3 ml/min Estimated GFR () 119.9 Estimated GFR (Non- 103.4 BUN/Creatinine Ratio 11.8 Random Glucose 85 mg/dl Calcium Level 8.7 mg/dl Assessment and Plan This is a 25 year old male with PMH of Crohns presented with acute rectal bleeding LGIB 06/03 perianal bleeding appreciate GI input colonoscopy performed and negative plan to discharge patient home today back on home medications outpatient PCP follow-up 06/02 unsure of the cause possible Crohn's flare? appreciate GI input for now, the plan is for IVFs, monitor H/H clear liquid diet, miralax and bowel prep colonoscopy planned for 06/03 steroids have been stopped continue Protonix DVT ppx SCDs FULL CODE
--- NOTE | 2016-06-03 15:23 | Discharge Instructions ---
Discharge Instructions Date of Service Jun 03, 2016. Admission Reason for Admission: Rectal Bleed Discharge Discharge Diagnosis / Problem: Rectal/Perianal Bleeding Discharge Goals Goal(s): Decrease discomfort, Improve function, Diagnostic testing Activity Recommendations Activity Limitations: resume your previous activity . Instructions / Follow-Up Instructions / Follow-Up Please follow-up with Dr. Cruz (covering for your primary care) on June 09 @ 10:50AM Continue current medications Outpatient doctor should get a repeat CBC in 1-2 weeks to make sure Hgb is stable Current Hospital Diet Patient's current hospital diet: Clear Liquid Diet Discharge Diet Recommended Diet: Regular Diet Procedures Procedures Performed: COLON WITH BIOPSY Pending Studies Studies pending at discharge: no Medical Emergencies . Who to Call and When: Medical Emergencies: If at any time you feel your situation is an emergency, please call 911 immediately. . Non-Emergent Contact Non-Emergency issues call your: Primary Care Provider . . "Provider Documentation" section prepared by Rupal Navarro. VTE Core Measure Inpt VTE Proph given/why not?: SCD's
--- NOTE | 2016-06-03 15:25 | Discharge Summary ---
Discharge Summary Date of Service Jun 03, 2016. Discharge Summary Admission Date: Jun 01, 2016 at 19:48 Discharge Date: Jun 03, 2016 Discharge Disposition: Home Principal Diagnosis: Crohns Perianal/Rectal Bleeding Medication Reconciliation Continued Medications: Azathioprine (Imuran) 50 Mg Tab 150 MG PO QAM Loratadine (Claritin) 10 Mg Tab 10 MG PO QAM PRN for QAM, TAB Mesalamine (Lialda) 1.2 Gm Tab 2.4 TAB PO QAM, TAB Multiple Vitamin (Multivitamin) 1 Tab Tab 1 TAB PO QAM, TAB Admission Information HPI (per Admitting provider): This is a 25 y/o male with PMHx of Crohns who presents to the ED c/o rectal bleed that began last night. Pt reports that last night around midnight he had 2 back to back episodes of bloody diarrhea. After the second episode he became lightheaded and diaphoretic and ended up passing out for a few seconds on his bathroom floor. Sxs are assoc with waxing and waning "twisting" RLQ abd pain that he rates at an 8/10 at its worst. Pt was seen in the ED last night for his sxs, HgB was stable and patient was discharged home with Bentyl. Pt has not had anymore episodes of bleeding since last night. Pt was seen by a physician at [facility] today. The Dr. claros recommended he return to the ED for further evaluation and possible admission. Pt is not on any blood thinners and rarely takes NSAIDs. Pt has a history of Crohns Dz. He had an ileo-colonic resection in 2008. He takes Lialda and Imuran and has not had a flare since his resection. Last colonoscopy and EGD from 2014 were normal. Pt follows with GI, Dr. De Guzman. Pt denies chest pain, palpitations, SOB, N/V, bladder issues, LE edema, calf pain. In the ED, vitals are stable. HgB 13. chest/abd xray negative for obstruction. Pt is hemodynamically stable and will be admitted for further evaluation and treatment. Physical Exam (per Admitting): General Appearance: WD/WN, no apparent distress, + pertinent finding (Pt is laying in bed with mother at bedside ) Head: normocephalic, atraumatic Eyes: normal inspection ENT: hearing grossly normal Neck: supple Respiratory/Chest: chest non-tender, lungs clear, normal breath sounds, no respiratory distress Cardiovascular: regular rate, rhythm, no edema, no murmur Abdomen/GI: normal bowel sounds, soft, + tenderness (RLQ) Back: normal inspection Extremities/Musculoskelatal: normal inspection, no calf tenderness, no pedal edema Neurologic/Psych: alert, normal mood/affect, oriented x 3 Skin: normal color, warm/dry Hospital Course This is a 25 year old male with PMH of Crohns presented with acute rectal bleeding LGIB 06/03 perianal bleeding appreciate GI input colonoscopy performed and negative plan to discharge patient home today back on home medications outpatient PCP follow-up 06/02 unsure of the cause possible Crohn's flare? appreciate GI input for now, the plan is for IVFs, monitor H/H clear liquid diet, miralax and bowel prep colonoscopy planned for 06/03 steroids have been stopped continue Protonix DVT ppx SCDs FULL CODE Total time spent on discharge = 20 minutes This includes examination of the patient, discharge planning, medication reconciliation, and communication with other providers. Discharge Instructions Please follow-up with Dr. Cruz (covering for your primary care) on June 09 @ 10:50AM Continue current medications Outpatient doctor should get a repeat CBC in 1-2 weeks to make sure Hgb is stable
[2016-06-03] MEDS: MULTIVITAMIN TAB PO SCH (15:52)
== END 2016-06-03 17:00 | disposition home or self-care (01) | DRG 386 ==
LOC: ENRESERVDT → ENRESERVTM → C.EDB 14:23 → C.2T 19:48
PROVIDERS: ADMIT Internal Medicine; ATTEND Family Medicine
PROC: 0DJD8ZZ Inspection of Lower Intestinal Tract, Via Natural or Artificial Opening Endoscopic (ICD-10-PCS; principal; 2016-06-03 11:37)
DX: K50.911 Crohn's disease, unspecified, with rectal bleeding (principal); K62.5 Hemorrhage of anus and rectum; R10.9 Unspecified abdominal pain; R55 Syncope and collapse; D64.9 Anemia, unspecified; Z90.49 Acquired absence of other specified parts of digestive tract; Z96.651 Presence of right artificial knee joint; Z79.899 Other long term (current) drug therapy; Z79.1 Long term (current) use of non-steroidal anti-inflammatories (NSAID)